=== PATIENT | male | born 1990 | race Hispanic/Latino ===

== ENCOUNTER 2017-09-08 17:02 | Emergency (ER) | payer SELFPAY | END 2017-09-08 18:13 | disposition home or self-care (01) | LOC: EDH 17:02 | DX: R19.7 Diarrhea, unspecified (principal); R11.2 Nausea with vomiting, unspecified | CPT/HCPCS: 99281 ==

== ENCOUNTER 2020-09-09 20:06 | Emergency (ER) | payer SELFPAY ==
[~2020-09-09 20:06] MED LIST: PROMETHAZINE HCL 25 MG/ML 1ML AMPULE IM ONE
[2020-09-09] MEDS ORDERED: SODIUM CHLORIDE 0.9% 1000ML 1,000 ML IV ONE (20:37)
[2020-09-09] MEDS ORDERED: KETOROLAC TROMETHAMINE 30MG/ML ONE (20:37)
[2020-09-09] MEDS ORDERED: CYCLOBENZAPRINE HCL 10 MG TABLET ONE (20:37)
[2020-09-09] MEDS ORDERED: SODIUM CHLORIDE 0.9% 50 ML IV ONE (20:39)
[2020-09-09 20:43] LABS: BASOPHILS % (AUTO) 0.4 % (0.0-5.0); EOSINOPHILS % (AUTO) 1.8 % (0.0-8.0); HEMATOCRIT 44.9 % (42-54); LYMPHOCYTES % (AUTO) 24.7 % (21.0-51.0); MEAN CORPUSCULAR HEMOGLOBIN 29.7 pg (27.0-33.0); MEAN CORPUSCULAR HGB CONC 33.9 g/dL (32.0-36.0); MEAN CORPUSCULAR VOLUME 87.9 fL (79-99); MONOCYTES % (AUTO) 8.7 % (3.0-13.0); PLATELET COUNT (AUTO) 239 K/uL (130-400); RED BLOOD CELL COUNT(AUTO) 5.11 MIL/uL (4.50-6.20); RED CELL DISTRIBUTION WIDTH 12.5 % (11.0-15.5); WHITE BLOOD COUNT (AUTO) 7.4 K/uL (4.8-10.8)
[2020-09-09 20:52] LABS: APPEARANCE,URINE Cloudy (CLEAR); BILIRUBIN,URINE Negative (NEGATIVE); COLOR,URINE Yellow (YELLOW); GLUCOSE, URINE (UA) Negative (NEGATIVE); KETONES,URINE Trace mg/dL (NEGATIVE); LEUKOCYTE ESTERASE ,URINE Negative (NEGATIVE); NITRATE,URINE Negative (NEGATIVE); OCCULT BLOOD,URINE Negative (NEGATIVE); PROTEIN,URINE POS 2+ mg/dL (NEGATIVE)
[2020-09-09 21:04] LABS: RBC,URINE 0-1 /HPF (0-1)
[2020-09-09 21:05] LABS: AMORPHOUS SEDIMENT,UR Moderate /LPF (None Seen); BACTERIA,URINE Few /HPF (None Seen); MUCUS,URINE Few LPF (None Seen); SQUAMOUS EPITHELIAL CELL,UR 0-2 /HPF (0-2)
[2020-09-09 21:06] LABS: POTASSIUM 4.7 mmol/L (3.5-5.1)
[2020-09-09 21:09] LABS: ALBUMIN 3.9 g/dL (3.5-5.0); BILIRUBIN,TOTAL 0.6 mg/dL (0.2-1.0); CRP QUANTITATIVE 4.8 mg/L (0.00-9.0); TOTAL PROTEIN, SERUM 7.8 g/dL (6.0-8.3)
[2020-09-09] MEDS ORDERED: CEFTRIAXONE SODIUM 1 GM ONE (21:33)
== END 2020-09-09 22:38 | disposition home or self-care (01) ==
LOC: EDH 20:06
DX: N30.00 Acute cystitis without hematuria (principal); G43.109 Migraine with aura, not intractable, without status migrainosus; F41.9 Anxiety disorder, unspecified; Z72.0 Tobacco use
CPT/HCPCS: 36415; 70450; 80053; 81001; 85025; 86140; 96365; 96366; 96368; 96375; 99284; J0696; J1885; J2550; J7030

== ENCOUNTER 2024-01-16 14:28 | Emergency (ER) | payer BC ==
[~2024-01-16] VITALS: Ht 172.7 cm; Wt 119.3 kg
[2024-01-16] MEDS ORDERED: HYDR-3422 PO (16:47)
[2024-01-16] MEDS ORDERED: TRIAMCINOLONE 1% TP (16:47)
[2024-01-16] MEDS: HYDROXYZINE 50MG VIAL 50 MG/ML VIAL IM ONE (17:03)
[2024-01-16 17:15] VITALS: BP 146/81; PULSE 68; RESP 20; O2SAT 99
== END 2024-01-16 17:16 | disposition home or self-care (01) ==
LOC: EDH 14:28
DX: L40.9 Psoriasis, unspecified (principal); L29.9 Pruritus, unspecified; E66.9 Obesity, unspecified; F32.A Depression, unspecified; F41.9 Anxiety disorder, unspecified
CPT/HCPCS: 99284; 96372; J3410